=== PATIENT | female | born 1980 | race African-American/Black ===

== ENCOUNTER 2022-01-02 13:17 | Inpatient (IN) | payer OTHER ==
[2022-01-02] MEDS ORDERED: MAGNESIUM CITRATE 300 ML BOTTLE PO PRN (14:18)
[2022-01-02] MEDS ORDERED: ONDANSETRON *ODT* 4 MG TABLET SL PRN (14:18)
[2022-01-02] MEDS ORDERED: MAG HYDROX/AL HYDROX/SIMETH 30 ML UNIT-DOSE CUP PO PRN (14:18)
[2022-01-02] MEDS ORDERED: IBUPROFEN 400 MG TABLET (FP) PO PRN (14:18)
[2022-01-02] MEDS ORDERED: BISMUTH SUBSALICYLATE 262 MG/15 ML BTL PO PRN (14:18)
[2022-01-02] MEDS ORDERED: ACETAMINOPHEN 325 MG TABLET (FP) PO PRN ×2 (14:18)
[2022-01-02] MEDS ORDERED: MAGNESIUM HYDROX 2400MG/30ML ORAL SUSPENSION 30 ML CUP PO PRN (14:18)
[2022-01-02] MEDS ORDERED: MENTHOL/PHENOL 1 EACH UD MM PRN (14:18)
[2022-01-02 14:48] VITALS: BMI 18.2
[2022-01-02] MEDS: hydrOXYzine PAMOATE 25 MG CAPSULE (FP) PO SCH ×2 (18:05→22:39)
[2022-01-02] MEDS: NICOTINE 10 MG CARTRIDGE (INHALER) IH PRN (18:09)
[2022-01-02] MEDS: THIAMINE HCL 100 MG TABLET (FP) PO SCH (22:39)
[2022-01-02] MEDS: MELATONIN 5 MG TABLETS PO SCH (22:39)
[2022-01-03] MEDS: hydrOXYzine PAMOATE 25 MG CAPSULE (FP) PO SCH ×5 (07:19→22:23)
[2022-01-03] MEDS ORDERED: chlordiazePOXIDE HCL 25 MG CAPSULE PO PRN (10:07)
[2022-01-03] MEDS: PRENATAL VITAMINS W/ FOLIC ACID TABLET (FP) PO SCH (10:13)
[2022-01-03] MEDS: METHOCARBAMOL 500 MG TABLET PO PRN ×2 (10:13→18:12)
[2022-01-03 10:17] LABS: HEMATOCRIT 36.3 % (32.4-45.2); HEMOGLOBIN 12.1 GM/dL (10.7-15.3); MCH 30.5 pg (25.7-33.7); MCHC 33.3 g/dl (32.0-36.0); MEAN CELL VOLUME 91.5 fl (80-96); MEAN PLT VOLUME 8.8 fl (7.5-11.1); PLATELET COUNT 185 10^3/uL (134-434); RBC 3.97 M/mm3 (3.60-5.2); WHITE BLOOD COUNT 3.8 K/mm3 (4.0-10.0)
[2022-01-03 10:22] LABS: CALCIUM 8.7 mg/dL (8.5-10.1)
[2022-01-03 10:23] LABS: ALBUMIN 3.2 g/dl (3.4-5.0); BLOOD UREA NITROGEN 11.3 mg/dL (7-18)
[2022-01-03 10:26] LABS: CREATININE 0.6 mg/dL (0.55-1.3)
[2022-01-03 10:28] LABS: BILIRUBIN,TOTAL 0.2 mg/dL (0.2-1)
[2022-01-03] MEDS: chlordiazePOXIDE HCL 25 MG CAPSULE PO SCH ×3 (11:03→22:23)
[2022-01-03] MEDS ORDERED: FLU VACC QS2021-22(6MOS UP)/PF 60 MCG/0.5 ML SYRINGE IM ONE (12:00)
[2022-01-03] MEDS: NICOTINE 10 MG CARTRIDGE (INHALER) IH PRN (18:13)
[2022-01-03] MEDS: QUEtiapine FUMARATE 300 MG TABLET PO SCH (22:23)
[2022-01-03] MEDS: THIAMINE HCL 100 MG TABLET (FP) PO SCH (22:23)
[2022-01-03] MEDS: traZODone HCL 50 MG TABLET (FP) PO SCH (22:23)
[2022-01-03] MEDS: MELATONIN 5 MG TABLETS PO SCH (22:23)
[2022-01-04] MEDS: chlordiazePOXIDE HCL 25 MG CAPSULE PO SCH ×4 (07:01→22:11)
[2022-01-04] MEDS: hydrOXYzine PAMOATE 25 MG CAPSULE (FP) PO SCH ×5 (07:03→22:09)
[2022-01-04] MEDS: METHOCARBAMOL 500 MG TABLET PO PRN ×3 (07:03→22:09)
[2022-01-04] MEDS: PRENATAL VITAMINS W/ FOLIC ACID TABLET (FP) PO SCH (10:52)
[2022-01-04] MEDS: NICOTINE 10 MG CARTRIDGE (INHALER) IH PRN (20:37)
[2022-01-04] MEDS: THIAMINE HCL 100 MG TABLET (FP) PO SCH (22:09)
[2022-01-04] MEDS: QUEtiapine FUMARATE 300 MG TABLET PO SCH (22:09)
[2022-01-04] MEDS: traZODone HCL 50 MG TABLET (FP) PO SCH (22:09)
[2022-01-04] MEDS: MELATONIN 5 MG TABLETS PO SCH (22:10)
[2022-01-05] MEDS: chlordiazePOXIDE HCL 25 MG CAPSULE PO SCH ×4 (06:53→22:22)
[2022-01-05] MEDS: hydrOXYzine PAMOATE 25 MG CAPSULE (FP) PO SCH ×5 (06:53→22:22)
[2022-01-05] MEDS: PRENATAL VITAMINS W/ FOLIC ACID TABLET (FP) PO SCH (10:19)
[2022-01-05] MEDS: METHOCARBAMOL 500 MG TABLET PO PRN ×3 (10:19→23:27)
[2022-01-05] MEDS: NICOTINE 10 MG CARTRIDGE (INHALER) IH PRN ×2 (17:34→23:24)
[2022-01-05] MEDS: QUEtiapine FUMARATE 300 MG TABLET PO SCH (22:22)
[2022-01-05] MEDS: traZODone HCL 50 MG TABLET (FP) PO SCH (22:22)
[2022-01-05] MEDS: THIAMINE HCL 100 MG TABLET (FP) PO SCH (22:22)
[2022-01-05] MEDS: MELATONIN 5 MG TABLETS PO SCH (22:22)
[2022-01-06] MEDS ORDERED: chlordiazePOXIDE HCL 10 MG CAPSULE PO PRN
[2022-01-06] MEDS: chlordiazePOXIDE HCL 10 MG CAPSULE PO SCH ×4 (06:37→22:12)
[2022-01-06] MEDS: hydrOXYzine PAMOATE 25 MG CAPSULE (FP) PO SCH ×5 (06:37→22:11)
[2022-01-06] MEDS: METHOCARBAMOL 500 MG TABLET PO PRN ×3 (09:02→22:12)
[2022-01-06] MEDS: PRENATAL VITAMINS W/ FOLIC ACID TABLET (FP) PO SCH (10:32)
[2022-01-06] MEDS: NICOTINE 10 MG CARTRIDGE (INHALER) IH PRN ×3 (12:15→22:14)
[2022-01-06] MEDS: QUEtiapine FUMARATE 300 MG TABLET PO SCH (22:11)
[2022-01-06] MEDS: MELATONIN 5 MG TABLETS PO SCH (22:11)
[2022-01-06] MEDS: THIAMINE HCL 100 MG TABLET (FP) PO SCH (22:11)
[2022-01-06] MEDS: traZODone HCL 50 MG TABLET (FP) PO SCH (22:11)
[2022-01-07] MEDS: hydrOXYzine PAMOATE 25 MG CAPSULE (FP) PO SCH ×5 (06:27→21:43)
[2022-01-07] MEDS: chlordiazePOXIDE HCL 10 MG CAPSULE PO SCH ×2 (06:27→17:11)
[2022-01-07] MEDS: METHOCARBAMOL 500 MG TABLET PO PRN ×2 (06:28→11:47)
[2022-01-07] MEDS: PRENATAL VITAMINS W/ FOLIC ACID TABLET (FP) PO SCH (10:19)
[2022-01-07] MEDS: NICOTINE 10 MG CARTRIDGE (INHALER) IH PRN ×3 (11:47→21:44)
[2022-01-07] MEDS: traZODone HCL 50 MG TABLET (FP) PO SCH (21:43)
[2022-01-07] MEDS: MELATONIN 5 MG TABLETS PO SCH (21:43)
[2022-01-07] MEDS: THIAMINE HCL 100 MG TABLET (FP) PO SCH (21:43)
[2022-01-07] MEDS: QUEtiapine FUMARATE 300 MG TABLET PO SCH (21:43)
[2022-01-08] MEDS ORDERED: chlordiazePOXIDE HCL 10 MG CAPSULE PO ONE (05:00)
[2022-01-08] MEDS: hydrOXYzine PAMOATE 25 MG CAPSULE (FP) PO SCH (06:42)
[2022-01-08] MEDS: METHOCARBAMOL 500 MG TABLET PO PRN (06:42)
[2022-01-08 08:47] VITALS: BP 102/64; PULSE 77; TEMP 97.2
== END 2022-01-08 09:16 | disposition home or self-care (01) | DRG 774 ==
LOC: YASAS 13:17 → Y3N 16:20
PROVIDERS: ADMIT Allergy & Immunology; ATTEND Allergy & Immunology
PROC: HZ2ZZZZ Detoxification Services for Substance Abuse Treatment (ICD-10-PCS; principal; 2022-01-02)
DX: F10.230 Alcohol dependence with withdrawal, uncomplicated (principal); F14.20 Cocaine dependence, uncomplicated; F12.10 Cannabis abuse, uncomplicated; F17.210 Nicotine dependence, cigarettes, uncomplicated; F31.9 Bipolar disorder, unspecified; F19.282 Other psychoactive substance dependence with psychoactive substance-induced sleep disorder; F19.24 Other psychoactive substance dependence with psychoactive substance-induced mood disorder; Z88.8 Allergy status to other drugs, medicaments and biological substances; Z56.0 Unemployment, unspecified; Z59.00 Homelessness unspecified
CPT/HCPCS: 36415; 80053; 81025; 85027; 86780; 93005; 93010; C9803; U0003; U0005

== ENCOUNTER 2022-02-01 17:44 | Inpatient (IN) | payer OTHER ==
[2022-02-01] MEDS ORDERED: MAGNESIUM CITRATE 300 ML BOTTLE PO PRN (22:50)
[2022-02-01] MEDS ORDERED: MAGNESIUM HYDROX 2400MG/30ML ORAL SUSPENSION 30 ML CUP PO PRN (22:50)
[2022-02-01] MEDS ORDERED: ONDANSETRON *ODT* 4 MG TABLET SL PRN (22:50)
[2022-02-01] MEDS ORDERED: MENTHOL/PHENOL 1 EACH UD MM PRN (22:50)
[2022-02-01] MEDS ORDERED: ACETAMINOPHEN 325 MG TABLET (FP) PO PRN ×2 (22:50)
[2022-02-01] MEDS ORDERED: IBUPROFEN 400 MG TABLET (FP) PO PRN (22:50)
[2022-02-01] MEDS ORDERED: LOPERAMIDE HCL 2 MG CAPSULE PO PRN (22:50)
[2022-02-01] MEDS ORDERED: NICOTINE 10 MG CARTRIDGE (INHALER) IH PRN (22:50)
[2022-02-01] MEDS ORDERED: MAG HYDROX/AL HYDROX/SIMETH 30 ML UNIT-DOSE CUP PO PRN (22:50)
[2022-02-01] MEDS ORDERED: BISMUTH SUBSALICYLATE 524 MG/30 ML PO PRN (22:50)
[2022-02-01] MEDS ORDERED: chlordiazePOXIDE HCL 25 MG CAPSULE PO PRN (22:50)
[2022-02-02] MEDS: chlordiazePOXIDE HCL 25 MG CAPSULE PO SCH ×5 (01:34→22:51)
[2022-02-02] MEDS: METHOCARBAMOL 500 MG TABLET PO PRN ×3 (01:34→22:52)
[2022-02-02] MEDS: hydrOXYzine PAMOATE 25 MG CAPSULE (FP) PO SCH ×5 (06:54→22:51)
[2022-02-02] MEDS: PRENATAL VITAMINS W/ FOLIC ACID TABLET (FP) PO SCH (10:55)
[2022-02-02] MEDS ORDERED: FLU VACC QS2021-22(6MOS UP)/PF 60 MCG/0.5 ML SYRINGE IM ONE (12:00)
[2022-02-02 12:44] LABS: HEMATOCRIT 36.3 % (32.4-45.2); HEMOGLOBIN 12.5 GM/dL (10.7-15.3); MCH 31.2 pg (25.7-33.7); MCHC 34.3 g/dl (32.0-36.0); MEAN CELL VOLUME 90.9 fl (80-96); MEAN PLT VOLUME 8.8 fl (7.5-11.1); PLATELET COUNT 194 10^3/uL (134-434); RDW 14.5 % (11.6-15.6); WHITE BLOOD COUNT 5.1 K/mm3 (4.0-10.0)
[2022-02-02 13:25] LABS: CREATININE 0.7 mg/dL (0.55-1.3)
[2022-02-02 13:26] LABS: TOT PROT 6.4 g/dl (6.4-8.2)
[2022-02-02 13:46] LABS: ALBUMIN 3.2 g/dl (3.4-5.0); BLOOD UREA NITROGEN 10.1 mg/dL (7-18); CALCIUM 8.6 mg/dL (8.5-10.1)
[2022-02-02 13:52] LABS: HIV INTERPRETATION NEGATIVE (NEGATIVE)
[2022-02-02] MEDS ORDERED: QUEtiapine FUMARATE 200 MG TABLET PO SCH (22:00)
[2022-02-02] MEDS: traZODone HCL 50 MG TABLET (FP) PO SCH (22:42)
[2022-02-02] MEDS: QUEtiapine FUMARATE 50 MG TABLET PO SCH (22:42)
[2022-02-02] MEDS: THIAMINE HCL 100 MG TABLET (FP) PO SCH (22:43)
[2022-02-02] MEDS: MELATONIN 5 MG TABLETS PO SCH (22:51)
[2022-02-03] MEDS: hydrOXYzine PAMOATE 25 MG CAPSULE (FP) PO SCH ×5 (06:56→21:53)
[2022-02-03] MEDS: METHOCARBAMOL 500 MG TABLET PO PRN ×2 (06:57→10:03)
[2022-02-03] MEDS: chlordiazePOXIDE HCL 25 MG CAPSULE PO SCH ×4 (06:57→23:13)
[2022-02-03] MEDS: PRENATAL VITAMINS W/ FOLIC ACID TABLET (FP) PO SCH (10:02)
[2022-02-03] MEDS: traZODone HCL 50 MG TABLET (FP) PO SCH (21:53)
[2022-02-03] MEDS: QUEtiapine FUMARATE 50 MG TABLET PO SCH (21:53)
[2022-02-03] MEDS: THIAMINE HCL 100 MG TABLET (FP) PO SCH (21:54)
[2022-02-03] MEDS: MELATONIN 5 MG TABLETS PO SCH (23:13)
[2022-02-04] MEDS ORDERED: chlordiazePOXIDE HCL 10 MG CAPSULE PO PRN
[2022-02-04] MEDS: hydrOXYzine PAMOATE 25 MG CAPSULE (FP) PO SCH ×5 (05:42→22:15)
[2022-02-04] MEDS: chlordiazePOXIDE HCL 10 MG CAPSULE PO SCH ×4 (05:43→22:14)
[2022-02-04] MEDS: METHOCARBAMOL 500 MG TABLET PO PRN ×2 (05:45→17:29)
[2022-02-04] MEDS: PRENATAL VITAMINS W/ FOLIC ACID TABLET (FP) PO SCH (10:13)
[2022-02-04] MEDS: traZODone HCL 50 MG TABLET (FP) PO SCH (22:14)
[2022-02-04] MEDS: QUEtiapine FUMARATE 50 MG TABLET PO SCH (22:14)
[2022-02-04] MEDS: THIAMINE HCL 100 MG TABLET (FP) PO SCH (22:15)
[2022-02-04] MEDS: MELATONIN 5 MG TABLETS PO SCH (22:16)
[2022-02-05 00:08] LABS: SARS-CoV-2 NAA Not Detected (Not Detected)
[2022-02-05] MEDS: METHOCARBAMOL 500 MG TABLET PO PRN ×3 (02:20→17:06)
[2022-02-05] MEDS: chlordiazePOXIDE HCL 10 MG CAPSULE PO SCH ×2 (06:23→17:06)
[2022-02-05] MEDS: hydrOXYzine PAMOATE 25 MG CAPSULE (FP) PO SCH ×5 (06:23→21:56)
[2022-02-05] MEDS: PRENATAL VITAMINS W/ FOLIC ACID TABLET (FP) PO SCH (10:39)
[2022-02-05] MEDS: traZODone HCL 50 MG TABLET (FP) PO SCH (21:55)
[2022-02-05] MEDS: MELATONIN 5 MG TABLETS PO SCH (21:56)
[2022-02-05] MEDS: QUEtiapine FUMARATE 50 MG TABLET PO SCH (21:56)
[2022-02-05] MEDS: THIAMINE HCL 100 MG TABLET (FP) PO SCH (21:57)
[2022-02-06] MEDS ORDERED: chlordiazePOXIDE HCL 10 MG CAPSULE PO ONE (05:00)
[2022-02-06] MEDS: hydrOXYzine PAMOATE 25 MG CAPSULE (FP) PO SCH ×2 (06:58→10:14)
[2022-02-06] MEDS: METHOCARBAMOL 500 MG TABLET PO PRN (06:59)
[2022-02-06 09:58] VITALS: BP 103/50; PULSE 78; TEMP 98
[2022-02-06] MEDS: PRENATAL VITAMINS W/ FOLIC ACID TABLET (FP) PO SCH (10:14)
== END 2022-02-06 12:12 | disposition home or self-care (01) | DRG 774 ==
LOC: YASAS 17:44 → Y6N 23:40
PROVIDERS: ADMIT Allergy & Immunology; ATTEND Allergy & Immunology
PROC: HZ2ZZZZ Detoxification Services for Substance Abuse Treatment (ICD-10-PCS; principal; 2022-02-01)
DX: F10.230 Alcohol dependence with withdrawal, uncomplicated (principal); F14.20 Cocaine dependence, uncomplicated; F12.10 Cannabis abuse, uncomplicated; F17.210 Nicotine dependence, cigarettes, uncomplicated; F31.9 Bipolar disorder, unspecified; F19.24 Other psychoactive substance dependence with psychoactive substance-induced mood disorder; Z86.16 Personal history of COVID-19; Z88.8 Allergy status to other drugs, medicaments and biological substances; Z56.0 Unemployment, unspecified; Z59.00 Homelessness unspecified
CPT/HCPCS: 36415; 80053; 85027; 86780; 87389; C9803; U0003; U0005